=== PATIENT | female | born 1990 | race Two or more races ===

== ENCOUNTER 2018-01-03 13:03 | Emergency (ER) | payer MEDICAID, OTHER ==
[~2018-01-03] VITALS: Ht 162.6 cm; Wt 66.0 kg
[2018-01-03 13:22] VITALS: BP 122/77
== END 2018-01-03 14:45 | disposition home or self-care (01) ==
LOC: ER 13:03
DX: N64.59 Other signs and symptoms in breast (principal); Z39.1 Encounter for care and examination of lactating mother
CPT/HCPCS: 99281; A4315